=== PATIENT | male | born 1995 | race Caucasian/White ===

== ENCOUNTER 2017-01-26 12:30 | Emergency (ER) | payer MEDICAID ==
[2017-01-26 14:42] VITALS: BP 118/71
== END 2017-01-26 14:42 | disposition home or self-care (01) ==
LOC: ED 12:30
DX: R51 Headache (principal); R04.0 Epistaxis

== ENCOUNTER 2017-10-20 23:29 | Emergency (ER) | payer MEDICAID ==
[~2017-10-20] VITALS: Ht 170.2 cm; Wt 75.7 kg
[2017-10-20 23:33] VITALS: Ht 170.2 cm; Wt 75.7 kg
[2017-10-21 00:17] LABS: UA SPECIFIC GRAVITY <=1.005 (1.005-1.035); microscopic required? YES; urine erythrocyte NEGATIVE (NEGATIVE)
[2017-10-21 00:20] LABS: BASOPHIL % 0.3 % (0-2); PLATELET COUNT 230 x10^3mcL (130-400); RED CELL DISTRIBUTION WIDTH 13.7 % (11.5-14.5)
[2017-10-21 00:21] LABS: CALCIUM 8.4 mg/dL (8.5-10.1); CARBON DIOXIDE 25.9 mmol/L (21-32); CHLORIDE SERUM 103 mmol/L (98-107); CREATININE SERUM 0.9 mg/dL (0.7-1.3); GFR1 > 60 mL/min; GLUCOSE SERUM 108 mg/dL (74-106); POTASSIUM SERUM 3.4 mmol/L (3.5-5.1); SODIUM SERUM 138 mmol/L (136-145)
[2017-10-21 00:31] LABS: ALBUMIN 4.3 g/dL (3.4-5.0); ALKALINE PHOSPHATASE 151 U/L (46-116); ALT/SGPT 39 U/L (16-63); AST/SGOT 32 U/L (15-37); BILIRUBIN TOTAL 0.7 mg/dL (0.20-1.00); TOTAL PROTEIN, SERUM 7.7 g/dL (6.4-8.2)
[2017-10-21 02:26] VITALS: BP 122/60
== END 2017-10-21 02:26 | disposition home or self-care (01) ==
LOC: ED 23:29
PROVIDERS: Emergency Medicine
DX: R10.32 Left lower quadrant pain (principal); R07.89 Other chest pain; E87.6 Hypokalemia; R42 Dizziness and giddiness
CPT/HCPCS: 36415; J1885

== ENCOUNTER 2018-03-31 11:31 | Emergency (ER) | payer MEDICAID ==
[~2018-03-31] VITALS: Ht 172.7 cm; Wt 79.4 kg
[2018-03-31 11:41] VITALS: BP 123/56; Ht 172.7 cm; Wt 79.4 kg
== END 2018-03-31 12:11 | disposition home or self-care (01) ==
LOC: ED 11:31
DX: T63.441A Toxic effect of venom of bees, accidental (unintentional), initial encounter (principal); L23.89 Allergic contact dermatitis due to other agents; Y92.89 Other specified places as the place of occurrence of the external cause
CPT/HCPCS: J7512; Q0163

== ENCOUNTER 2018-06-05 22:04 | Emergency (ER) | payer MEDICAID | END 2018-06-05 22:44 | disposition left against medical advice (07) | LOC: ED 22:04 | DX: Z53.21 Procedure and treatment not carried out due to patient leaving prior to being seen by health care provider (principal) ==